=== PATIENT | female | born 1985 | race American Indian/Alaskan Native ===

== ENCOUNTER 2021-07-09 16:25 | Outpatient (CLI) | payer BC ==
[2021-07-09 18:13] LABS: Basophils # (Auto) 0.1 K/mm3 (0.0-0.1); Basophils % (Auto) 1.3 % (0.0-1.8); Eosinophils # (Auto) 0.3 K/mm3 (0.0-0.4); Eosinophils % (Auto) 3.1 % (0.0-4.3); Hemoglobin 12.2 gm/dl (10.1-14.3); Lymphocytes # (Auto) 3.7 K/mm3 (1.2-5.4); Lymphocytes % (Auto) 36.7 % (13.4-35.0); Mean Corpuscular HGB Conc 31 % (30-34); Mean Corpuscular Volume 84 fl (79-97); Monocytes # (Auto) 0.6 K/mm3 (0.0-0.8); Monocytes % (Auto) 5.7 % (0.0-7.3); Platelet Count 233 K/mm3 (140-440); Red Blood Count 4.62 M/mm3 (3.65-5.03); Red Cell Distribution Width 15.2 % (13.2-15.2)
[2021-07-09 18:31] LABS: Alanine Aminotransferase 19 units/L (7-56); Albumin 3.9 g/dL (3.9-5); BUN/Creatinine Ratio 18; Blood Urea Nitrogen 16 mg/dL (7-17); Calcium 8.7 mg/dL (8.4-10.2); Chol/HDL Ratio 2.85 %; HDL Cholesterol 68 mg/dL (40-59); Hemolysis Index 51; LDL Cholesterol,Direct 112 mg/dL (50-130)
== END 2021-07-09 16:26 | disposition home or self-care (01) ==
LOC: LAB 16:25
PROVIDERS: ATTEND Obstetrics & Gynecology
DX: Z00.8 Encounter for other general examination (principal)
CPT/HCPCS: 36415; 80053; 80061; 84443; 85025

== ENCOUNTER 2021-07-15 14:06 | Outpatient (CLI) | payer BC ==
--- NOTE | 2021-07-15 15:54 | Mammography Report ---
BILATERAL DIGITAL DIAGNOSTIC MAMMOGRAM WITH CAD CONVENTIONAL, 07/15/2021 BILATERAL LIMITED BREAST ULTRASOUND CLINICAL INFORMATION / INDICATION: Patient presents for evaluation of an area of palpable concern in the right breast. TECHNIQUE: Digital bilateral mammographic imaging was performed. Spot compression views were obtained . Limited ultrasound was performed. This examination was interpreted with the benefit of Computer-Aid ed Detection (CAD) analysis. COMPARISON: Baseline FINDINGS: Breast Density: The breasts are heterogeneously dense, which may obscure small masses. MAMMOGRAPHIC FINDINGS: Corresponding with the site of palpable concern in the posterior upper outer q uadrant of the right breast, there is a cluster of oval circumscribed masses, the largest measuring u p to 1.7 cm. Incidental note is made of an additional 8 mm circumscribed nodule in the upper inner qu adrant of the left breast, middle depth. Targeted ultrasound was performed for further evaluation. ULTRASOUND FINDINGS: Targeted ultrasound evaluation was performed of the area of interest. Right breast: Targeted ultrasound of the area of palpable concern in the right breast 9:00 position l ocated 6 cm from the nipple reveals several benign simple cysts, the largest measuring up to 2.2 cm. No suspicious solid lesion identified. Left breast: Corresponding with the nodular density seen mammographically, there is a 5 mm benign cys t seen in the left breast 10:00 position located 10 cm from the nipple. No suspicious solid lesion id entified. IMPRESSION: 1. Benign cysts are seen in both breasts, accounting for the area of palpable concern on the right. N o suspicious mammographic or sonographic abnormality identified. Follow up recommendation: Unless otherwise clinically indicated, recommend patient return to routine screening mammography at age 40. BI-RADS Category 2: BENIGN. A "normal" or negative report should not discourage follow up or biopsy of a clinically significant f inding. A written summary of these findings will be mailed to the patient. The patient will be entered into a mammography reporting system which will generate a reminder letter for the patient's next appointmen t at the appropriate interval. According to the [employer], yearly mammograms are recommended starting at age 40 and continuing as long as a woman is in good health. Breast MRI is recommended for women with an juan roximately 20-25% or greater lifetime risk of breast cancer, including women with a strong family his tory of breast or ovarian cancer and women who have been treated for Hodgkin's disease. Signer Name: Jeannie Wallace MD Signed: 07/15/2021 3:50 PM Workstation Name: [id number]
== END 2021-07-15 14:07 | disposition home or self-care (01) ==
LOC: MAMMO 14:06
PROVIDERS: ATTEND Obstetrics & Gynecology
DX: N60.01 Solitary cyst of right breast (principal); N60.02 Solitary cyst of left breast; N63.11 Unspecified lump in the right breast, upper outer quadrant
CPT/HCPCS: 77066

== ENCOUNTER 2021-08-09 12:29 | Outpatient (CLI) | payer BC | END 2021-08-09 12:30 | disposition home or self-care (01) | LOC: LABHHL 12:29 | PROVIDERS: ATTEND Surgery | DX: N60.01 Solitary cyst of right breast (principal) | CPT/HCPCS: 88112 ==